=== PATIENT | male | born 1950 | race Caucasian/White ===

== ENCOUNTER → 2017-01-14 | Outpatient (CLI) | payer MEDICARE, BC ==
[~2017-01-14] MED LIST: BUPR-86 PO; CARV12.5 PO; CLON1 PO; FLUO40CA PO; LEVO.15 PO; OMEP20TA39 PO
[2017-01-14 12:02] LABS: AUTOMATED NEUTROPHIL # 4.1 TH/MM3 (1.8-7.7); BASOPHIL % 0.6 % (0.0-2.0); EOSINOPHIL # 0.1 TH/MM3 (0-0.4); EOSINOPHIL % 2.1 % (0.0-4.0); HEMATOCRIT 43.9 % (39.0-51.0); HEMO FLAGS DIFF FINAL; LYMPH % 26.1 % (9.0-44.0); LYMPHOCYTE # 1.8 TH/MM3 (1.0-4.8); MEAN CELL VOLUME 87.1 FL (80.0-100.0); MEAN CORPUSCULAR HEMOGLOBIN 29.3 PG (27.0-34.0); MEAN CORPUSCULAR HGB CONC 33.6 % (32.0-36.0); MONO % 10.9 % (0.0-8.0); NEUT % 60.3 % (16.0-70.0); PLATELET COUNT 182 TH/MM3 (150-450); RED BLOOD COUNT 5.04 MIL/MM3 (4.50-5.90); RED CELL DISTRIBUTION WIDTH 13.8 % (11.6-17.2); WHITE BLOOD COUNT 6.7 TH/MM3 (4.0-11.0)
== END ==
LOC: ELAB 10:04
PROVIDERS: ATTEND Orthopaedic Surgery Orthopaedic Surgery of the Spine
DX: G56.02 Carpal tunnel syndrome, left upper limb (principal)
CPT/HCPCS: 36415; 85025

== ENCOUNTER → 2017-02-03 | Day surgery (SDC) | payer MEDICARE, BC ==
[~2017-02-03] MED LIST changes: +KETOROLAC TROMETHAMINE 30 MG/ML (IVP) VIAL IV PUSH ONE; +LACTATED RINGER'S 1000 ML INJ 1,000 ML ONE; +LIDOCAINE 1%/EPINEPHrine 1:100,000 SOLN 20 ML VIAL ONE; +MIDAZOLAM HCL 2 MG/2 ML VIAL ONE; +ONDANSETRON HCL 4 MG/2 ML VIAL IV PUSH ONE; +PROPOFOL 500 MG/50 ML BTL IV ONE; +ceFAZolin INJ 1,000 MG VIAL ONE
--- NOTE | 2017-02-03 13:28 | TN ---
cc: SANTY CUELLO DATE OF SURGERY 02/03/2017 PREOPERATIVE DIAGNOSIS Left carpal tunnel syndrome. POSTOPERATIVE DIAGNOSIS Left carpal tunnel syndrome. PROCEDURE Left carpal tunnel release. SURGEON Dariel Cuello MD ASSESSMENT Staff SPECIMENS None ESTIMATED BLOOD LOSS None COMPLICATIONS None ANESTHESIA General TIVA, local DRAINS None TOURNIQUET TIME 7 minutes at 200 mmHg CONDITION Stable PLAN OF ACTIVITIES Per orders PROCEDURE The patient was brought in the operating room, had satisfactory anesthesia by the Department of Anesthesia. The left upper extremity was prepped and draped in the usual sterile manner. The extremity was exsanguinated by Martinez wrap and tourniquet inflated to 200 mmHg. Prior to the tourniquet placed on the operative site, the carpal canal was injected with 4 cc of 1% lidocaine with epinephrine. A midline incision made over the carpal canal in between the thenar and hypothenar eminences. Dissection continued into the subcutaneous tissue. The transverse carpal ligament was incised longitudinally. Also release of the distal forearm fascia. The patient has a very satisfactory decompression of the median nerve. Great care was made to protect the recurrent motor branch. The wound was coagulated with bipolar anticoagulation. The wound was closed in multiple layers using 3-0 Vicryl. Skin was approximated with interrupted 2-0 nylon. Tourniquet was deflated, sterile dressings were applied. The patient tolerated the procedure well and arrived in the Recovery Room in stable and satisfactory condition. MD CHRISTIANO Escobar/ZHANE /1:08 PM /1:22 PM
== END | disposition home or self-care (01) ==
LOC: ESDC 09:32
PROVIDERS: ATTEND Orthopaedic Surgery Orthopaedic Surgery of the Spine
DX: G56.02 Carpal tunnel syndrome, left upper limb (principal)
CPT/HCPCS: 01810; 64721; J0690; J1885; J2250; J2405; J3010; J7120